=== PATIENT | male | born 1930 | race Caucasian/White ===

== ENCOUNTER → 2016-08-13 | Outpatient (CLI) | payer OTHER | PROVIDERS: ATTEND Otolaryngology | DX: R13.14 Dysphagia, pharyngoesophageal phase (principal) | CPT/HCPCS: 74230; 92611; G8996; G8997; G8998 ==

== ENCOUNTER 2016-09-18 12:48 | Inpatient (IN) | payer OTHER ==
[2016-09-18 14:45] LABS: HEMATOCRIT 27.2 % (40.0-51.0); HEMOGLOBIN 9.4 g/dL (13.7-17.5); MEAN CELL HEMOGLOBIN 32.2 pg (27.9-34.1); MEAN CELL HEMOGLOBIN CONCENTR. 34.6 g/dL (32.4-36.7); MEAN CELL VOLUME 93.2 fL (81.5-99.8); RED BLOOD CELL COUNT 2.92 10^6/uL (4.40-6.38); RED CELL DISTRIBUTION WIDTH 13.3 % (11.5-15.2)
[2016-09-18 14:58] LABS: ALANINE AMINOTRANSFERASE 41 IU/L (21-72); ALBUMIN 1.8 g/dL (3.5-5.0); ALKALINE PHOSPHATASE 41 IU/L (38-126); ANION GAP 6 mEq/L (8-16); ASPARTATE AMINOTRANSFERASE 55 IU/L (17-59); BILIRUBIN,TOTAL 0.5 mg/dL (0.1-1.4); CARBON DIOXIDE 14 mEq/l (22-31); CHLORIDE 115 mEq/L (97-110); GLOMERULAR FILTRATION RATE > 60; GLUCOSE 75 mg/dL (70-100); POTASSIUM 3.1 mEq/L (3.5-5.2); SODIUM 135 mEq/L (134-144); TOTAL PROTEIN 3.5 g/dL (6.3-8.2)
[2016-09-18 15:26] LABS: CALCIUM 4.7 mg/dL (8.5-10.4)
[2016-09-18] MEDS ORDERED: POTASSIUM Cl (KCl) 20 MEQ in D5W NS 1,000 ML IV SCH ×2 (15:45→16:30)
[2016-09-18 16:00] LABS: % IMMATURE GRANULYOCYTES 1.1 % (0.0-1.1); ABSOLUTE IMMATURE GRANULOCYTES 0.14 10^3/uL (0.00-0.10); ADD DIFF? NO; ADD MORPH? NO; ADD SCAN? NO; ATYPICAL LYMPHOCYTE FLAG 0 (0-99); FRAGMENT RBC FLAG 0 (0-99); HEMOGLOBIN 12.1 g/dL (13.7-17.5); LEFT SHIFT FLG 10 (0-99); LIPEMIA HEMOLYSIS FLAG 90 (0-99); MEAN CELL HEMOGLOBIN 31.6 pg (27.9-34.1); MEAN CELL HEMOGLOBIN CONCENTR. 34.6 g/dL (32.4-36.7); MEAN CELL VOLUME 91.4 fL (81.5-99.8); MEAN PLATELET VOLUME 9.4 fL (8.7-11.7); PLATELET CLUMPS FLAG 0 (0-99); PLATELET COUNT 155 10^3/uL (150-400); RED BLOOD CELL COUNT 3.83 10^6/uL (4.40-6.38); RED CELL DISTRIBUTION WIDTH 13.4 % (11.5-15.2)
[2016-09-18 16:34] LABS: ALANINE AMINOTRANSFERASE 64 IU/L (21-72); ALBUMIN 3.1 g/dL (3.5-5.0); ALKALINE PHOSPHATASE 66 IU/L (38-126); ANION GAP 10 mEq/L (8-16); ASPARTATE AMINOTRANSFERASE 82 IU/L (17-59); BILIRUBIN,TOTAL 0.8 mg/dL (0.1-1.4); CALCIUM 7.5 mg/dL (8.5-10.4); CARBON DIOXIDE 19 mEq/l (22-31); CHLORIDE 99 mEq/L (97-110); CREATININE 1.6 mg/dL (0.7-1.3); GLOMERULAR FILTRATION RATE 41; GLUCOSE 114 mg/dL (70-100); POTASSIUM 4.8 mEq/L (3.5-5.2); SODIUM 128 mEq/L (134-144); TOTAL PROTEIN 5.5 g/dL (6.3-8.2)
[2016-09-18] MEDS ORDERED: FLUTICASONE NASAL 120 SPRAYS/16 GM MDI EACHNARE PRN (18:49)
[2016-09-18] MEDS ORDERED: MIRTAZAPINE 15 MG TAB PO SCH (19:00)
[2016-09-18] MEDS ORDERED: NS 1,000 ML IV SCH (19:30)
--- NOTE | 2016-09-18 19:34 | GHP ---
[f rep st] HISTORY AND PHYSICAL DATE OF ADMISSION: 09/18/2016 REASON FOR ADMISSION: Pneumonia. 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 He was initially seen in the office where he w as found to have a temperature of 100 degrees Fahrenheit. He had new bibasilar rales with some righ t basilar wheezing. His oxygen saturation was 87% on room air and normally his saturation is 96% on room air. He is being admitted for evaluation and treatment. PAST MEDICAL HISTORY: Significant for an essential tremor, early dementia, prior hip fracture, asth ma, Legionella, and previous anaerobic pneumonia. REVIEW OF SYSTEMS: He is profoundly weak. His daughter describes that his dementia has been very p roblematic. He has had some problems with swallow and aspiration in the past, but he has difficulty following the guidelines for swallowing. He denies chest pain or palpitations. Denies digestive p roblems, but he does have profound overall weakness. No skin changes. No edema. PHYSICAL EXAMINATION: GENERAL: An 85-year-old male who is pleasant and in no acute distress. He i s alert, oriented and appropriate. VITAL SIGNS: Blood pressure in the office was 106/43, in the ho spital in 93/60. Heart rate was 96, in sinus. Oxygen saturation was initially 86% to 87% on room a ir. Became 100% on 2 L in the hospital. Temperature initially 100 Fahrenheit, is 36.5 centigrade i n the hospital. HEENT: Pupils are equal and react to light. Throat is normal. LUNGS: Bibasilar rales with some minimal right basilar wheezing and a tendency toward increase tubular breath sounds. ABDOMEN: Nontender. He has no peripheral edema. He moves all extremities well. IMPRESSION: Probable pneumonia. PLAN: Will admit. Will get chest x-ray, sputum cultures, initiate antibiotics. Do blood cultures. Follow symptoms closely. /[id number]/MODL
[2016-09-18] MEDS: PROPAFENONE HCL SR 225 MG CAP PO SCH (20:14)
[2016-09-18] MEDS: MEMANTINE HCL 5 MG TAB PO SCH (20:15)
[2016-09-18] MEDS: BUDESONIDE 3 MG EC CAP PO SCH (20:33)
[2016-09-18] MEDS ORDERED: ZOLPIDEM TARTRATE 5 MG TAB PO SCH (21:00)
[2016-09-18 22:44] LABS: COLOR YELLOW; LEUKOCYTE ESTERASE,URINE NEGATIVE (NEGATIVE); NITRITE,URINE NEGATIVE (NEGATIVE)
[2016-09-19] MEDS: ALBUTEROL 3 ML DEYVIAL IH PRN ×2 (01:02→04:50)
[2016-09-19] MEDS ORDERED: guaiFENesin/CODEINE PHOS 10 ML UDCUP PO PRN (01:50)
[2016-09-19] MEDS ORDERED: FUROSEMIDE 20 MG/2 ML VIAL IVP ONE ×2 (02:15→03:00)
[2016-09-19] MEDS: methylPREDNISolone SOD SUCC 125 MG/2 ML VIAL IVP SCH ×3 (02:28→13:09)
[2016-09-19] MEDS: BUDESONIDE 3 MG EC CAP PO SCH (08:11)
[2016-09-19] MEDS: MEMANTINE HCL 5 MG TAB PO SCH (08:12)
[2016-09-19] MEDS: PROPAFENONE HCL SR 225 MG CAP PO SCH (08:12)
--- NOTE | 2016-09-19 08:47 | SOAPPROG ---
SOAP Progress Note Assessment/Plan: Assessment: Plan: 09/19/16 08:46 asthma with significant exacerbation with probable pneumonia. Steroids started last night, nebs q4. On levaquin, cultures pending, Oxygen requirements are quite elevated. Subjective: The patient is coughing incessantly. No sleep. Grumpy. Short of breath. No CP. No other complaints Objective: Vital Signs Temp Pulse Resp BP Pulse Ox 37.1 C 101 H 20 90/57 L 91 L 09/19/16 08:00 09/19/16 08:00 09/19/16 08:00 09/19/16 08:00 09/19/16 08:00 Laboratory Results 09/18/16 15:50 09/18/16 15:50 09/18/16 09/19/16 09/20/16 05:59 05:59 05:59 Output Total 225 Balance -225 Gen: distressed, frustrated, uncomfortable with SOB HEENT: mild rhinorrhea Lungs: diffuse expiratory rhonchi, crackles, cough minimally productive Heart: tachy Abd soft NT LE's no edema ICD10 Worksheet Patient Problems: Problems Problem Status Onset ASCVD (arteriosclerotic cardiovascular disease) Acute Hip fracture, left Acute Hip fracture, right Acute
[2016-09-19] MEDS ORDERED: LORazepam 2 MG/ML INJ IVP PRN ×2 (08:49→14:23)
[2016-09-19] MEDS ORDERED: LORazepam 0.5 MG TAB PO PRN (08:49)
[2016-09-19] MEDS ORDERED: LOPERAMIDE HCL 1 MG/5 ML UDCUP PO SCH (09:00)
[2016-09-19] MEDS ORDERED: OMEGA-3 FATTY ACIDS 1,000 MG CAP PO SCH (09:00)
[2016-09-19] MEDS ORDERED: CHOLECALCIFEROL VIT D3 1,000 UNITS TAB PO SCH (09:00)
[2016-09-19] MEDS ORDERED: CYANO/VITAMIN B12 1000 MCG TAB PO SCH (09:00)
[2016-09-19] MEDS: ALBUTEROL 3 ML DEYVIAL IH SCH ×2 (09:06→13:09)
[2016-09-19 10:01] LABS: % IMMATURE GRANULYOCYTES 0.6 % (0.0-1.1); ABSOLUTE IMMATURE GRANULOCYTES 0.08 10^3/uL (0.00-0.10); ADD DIFF? NO; ADD MORPH? NO; ADD SCAN? NO; ATYPICAL LYMPHOCYTE FLAG 0 (0-99); FRAGMENT RBC FLAG 0 (0-99); HEMOGLOBIN 13.1 g/dL (13.7-17.5); LEFT SHIFT FLG 10 (0-99); LIPEMIA HEMOLYSIS FLAG 80 (0-99); MEAN CELL HEMOGLOBIN CONCENTR. 33.6 g/dL (32.4-36.7); MEAN CELL VOLUME 95.1 fL (81.5-99.8); MEAN PLATELET VOLUME 9.7 fL (8.7-11.7); PLATELET CLUMPS FLAG 10 (0-99); PLATELET COUNT 145 10^3/uL (150-400); RED CELL DISTRIBUTION WIDTH 13.5 % (11.5-15.2)
[2016-09-19 10:14] LABS: ANION GAP 16 mEq/L (8-16); CALCIUM 6.8 mg/dL (8.5-10.4); CARBON DIOXIDE 14 mEq/l (22-31); CHLORIDE 103 mEq/L (97-110); CREATININE 1.5 mg/dL (0.7-1.3); GLOMERULAR FILTRATION RATE 45; GLUCOSE 236 mg/dL (70-100); POTASSIUM 4.1 mEq/L (3.5-5.2); SODIUM 133 mEq/L (134-144)
[2016-09-19 10:30] LABS: CREATINE KINASE-MB FRACTION 9.54 ng/mL (0-3.19)
--- NOTE | 2016-09-19 10:31 | CPEKG ---
Heart Rate: 105 RR Interval: 571 P-R Interval: 148 QRSD Interval: 164 QT Interval: 388 QTC Interval: 513 P [place]: -68 QRS [place]: 159 T Wave [place]: -21 EKG Severity - ABNORMAL ECG - EKG Impression: SINUS OR ECTOPIC ATRIAL TACHYCARDIA EKG Impression: RIGHT BUNDLE BRANCH BLOCK EKG Impression: POSTERIOR INJURY PATTERN SUGGESTIVE OF TRUE POSTERIOR NH Electronically Signed By: Huy Quiñones 19-Sep-2016 13:40:35
[2016-09-19 10:41] LABS: CK-MB INTERPRETATION NEGATIVE (NEGATIVE)
[2016-09-19 13:55] VITALS: BP 89/59; PULSE 96; RESP 27; TEMP 98.2; O2SAT 99
--- NOTE | 2016-09-19 14:21 | PDINTPN ---
Associate Professor Of Psychology Progress Note Assessment/Plan: Assessment: I had a long discussion with the patient's family regarding his extremely poor prognosis. It is their wish that also poor be withdrawn and the patient be made comfortable. This regard I will discontinue his BiPAP and began comfort care measures. Patient is do not resuscitate Objective: Vital Signs Temp Pulse Resp BP Pulse Ox 36.8 C 96 27 H 89/59 L 99 09/19/16 13:00 09/19/16 13:00 09/19/16 13:00 09/19/16 13:00 09/19/16 13:00 Laboratory Results 09/19/16 09:40 09/19/16 09:40 09/18/16 09/19/16 09/20/16 05:59 05:59 05:59 Output Total 225 Balance -225 ICD10 Worksheet Patient Problems: Problems Problem Status Onset Chronic Disease Mgmt/Transitional Care Acute ASCVD (arteriosclerotic cardiovascular disease) Acute Hip fracture, left Acute Hip fracture, right Acute
--- NOTE | 2016-09-19 14:34 | ECHO ---
[id number] + + [address] : : [place] [address] : : [phone] + + Adult Echocardiographic Report + -------+ :Name: LISA STAHL Kuldeep Date: 09/19/2016 11:59 AM : : Hospital Admission Number: [id number] Locati on: 253: :: 1930 Gender: Male Height: 69 in : :Age: 85 yrs Race: WH Weight: 125 lb : :Reason For Study: Posterior DC : : BSA: 1.7 meter s2 : :History: CABG : + -------+ MMode/2D Measurements \T\ Calculations IVSd: 1.1 cm LVIDd: 4.3 cm FS: 42.4 % Ao root diam: LVPWd: 0.93 cm LVIDs: 2.5 cm EDV(Teich): 3.7 cm 81.7 ml LA dimension: ESV(Teich): 3.6 cm 21.4 ml EF(Teich): 73.8 % LVOT diam: 2.1 cm LA A4 area: LVOT area: 21.1 cm2 3.3 cm2 Normal Measurement Values: + + :LVIDd (3.5-5.7cm) IVSd (0.6-1.1cm) LVPWd (0.6-1.1cm) Aortic Root (2.0-3.7cm)Left Atrium (1.5-4.0cm): :LV Vol(d) (76-115ml) LV Vol(s) (29-48ml) Ejec Fraction (50-65%)PV Gabriel (0.6- 1.2m/s) TV Gabriel (0.4-1.0m/s) : :MV E Gabriel (0.8-1.0m/s)MV A Gabriel (0.3-1.0m/s)LVOT Gabriel (0.7-1.2m/s) Asc Ao Gabriel ( 0.9-1.8m/s) : + + Doppler Measurements \T\ Calculations MV E max gabriel: 128.3 cm/sec Ao mean P.1 mmHg TR max gabriel: 354.2 cm/sec MV A max gabriel: 62.2 cm/sec Ao V2 mean: 69.9 cm/sec TR max P.2 mmHg MV E/A: 2.1 Ao V2 VTI: 14.9 cm RAP systole: 10.0 mmHg RVSP(TR): 60.2 mmHg Left Ventricle The left ventricle is normal in size. There is normal left ventricular wall thickness. Left ventricular systolic function is normal. There is Doppler evidence for diastolic dysfunction. Ejection Fraction = 60-65%. No regional wall motion abnormalities noted. Right Ventricle The right ventricle is normal in size and function. Atria The left atrium is mild to moderately dilated. The right atrium is mild to moderately dilated. The interatrial septum is intact with no evidence for an atrial septal defect. Mitral Valve Prolapse of the anterior mitral leaflet. There is no mitral valve stenosis. The mitral regurgitant jet is anteriorly directed, which is consistent with posterior leaflet pathology. The mitral regurgitant jet is eccentrically directed. Tricuspid Valve Normal tricuspid valve. Right ventricular systolic pressure is 56-61mmHg. There is moderate tricuspid regurgitation. There is Doppler evidence for mild to moderate pulmonary hypertension. Aortic Valve The aortic valve opens well. There is no aortic stenosis. There is no aortic insufficiency. Pulmonic Valve The pulmonic valve is normal in structure and function. trace to mild pulmonic valvular regurgitation. Great Vessels The aortic root is normal size. Pericardium/Pleural There is no pericardial effusion. Conclusion A complete two-dimensional transthoracic echocardiogram was performed (2D, M-mode, Doppler and color flow Doppler). The study was technically difficult. No comparison echo,. Left ventricular systolic function is normal. No regional wall motion abnormalities noted. There is Doppler evidence for diastolic dysfunction. Ejection Fraction = 60-65%. The left atrium is mild to moderately dilated. The right atrium is mild to moderately dilated. Prolapse of the anterior mitral leaflet. The mitral regurgitant jet is anteriorly directed, which is consistent with posterior leaflet pathology. The mitral regurgitant jet is eccentrically directed. There is moderate tricuspid regurgitation. Right ventricular systolic pressure is 56-61mmHg. There is Doppler evidence for mild to moderate pulmonary hypertension. trace to mild pulmonic valvular regurgitation. Final Reading Physician: Nathalie Rocha signed on 09/19/2016 02:32 PM Ordering Physician: Huy Quiñones Performed By: Kristine Bonlila, [facility]
--- NOTE | 2016-09-19 14:35 | GCON ---
[f rep st] CONSULTATION ACUTE CARE CLINICAL NURSE SPECIALIST CONSULTATION REASON FOR ADMISSION TO INTENSIVE CARE UNIT: Likely acute VT. HISTORY OF PRESENT ILLNESS: The patient is an 85-year-old white male. Extensive past medical histo ry including dementia, essential tremor, asthma. He has also had a hip fracture and Legionella. He was initially admitted on 09/18/2016 with a diagnosis of probable pneumonia. On the day following admission, he began complaining of significant chest pain. He was seen by Card iology. He was subsequently transferred to the intensive care unit where it was felt he was having a posterior VT. He was complaining of breathlessness. Currently, he is on BiPAP. Echocardiogram i s currently pending. PAST MEDICAL HISTORY: Again, significant for essential tremor, dementia, asthma. He also had a pre vious pneumonia. PAST SURGICAL HISTORY: He has had a hip fracture. ALLERGIES: Cephalosporin, lansoprazole, penicillin G. 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 He has excellent family support. CURRENT MEDICATIONS: Include Proventil, aspirin, budesonide, vitamin D, Aricept, Flonase, Robitussi n, Levaquin, Imodium, Ativan, Namenda, Solu-Medrol, Remeron, morphine, primidone, Pravachol, Rythmol , vitamin B12, and Ambien. PHYSICAL EXAM: VITAL SIGNS: Blood pressure is 79/56, pulse 104, respirations 24, temperature 37.1, oxygen saturation 98% on 60% BiPAP. GENERAL: He is a well-developed, elderly white male who is cu rrently resting comfortably on BiPAP. HEENT: Eyes JESU, EOMI. Throat shows no erythema or tonsill ar hypertrophy. NECK: Supple. No cervical adenopathy. HEART: Regular rate and rhythm with a 2/6 systolic murmur at the left sternal border without radiation. LUNGS: Diminished breath sounds but no wheeze. ABDOMEN: Soft, nontender. Bowel sounds present in all 4 quadrants. EXTREMITIES: No clubbing, cyanosis, or edema. LABORATORIES: White count 12.8, hemoglobin 13, hematocrit 39, platelet count is 145, sodium 133, po tassium 4.1, chloride 103, CO2 is 16, BUN 36, creatinine 1.5, glucose 236. CK-MB is positive. Trop onin is positive. Urinalysis is negative. IMAGING: Chest x-ray shows . IMPRESSION: 1. Acute myocardial infarction. 2. Dementia. 3. Pulmonary edema. 4. History of asthma. 5. Essential tremor. RECOMMENDATIONS: 1. Continue BiPAP for now. 2. Await echo results. 3. The patient is do not resuscitate. 4. Medical management of acute myocardial infarction for now and likely patient will be going to [facility] dairy lab technician. 5. DVT and PE prophylaxis. 6. Stress ulcer prophylaxis. /[id number]/MODL
[2016-09-19] MEDS ORDERED: SCOPOLAMINE HYDROBROMIDE 1.5 MG PATCH TD SCH (16:00)
--- NOTE | 2016-09-19 17:22 | SOAPPROG ---
SOAP Progress Note Assessment/Plan: Assessment: 85 yo male admitted w/ pna, hypoxia, w/ increased oxygen demand overnight to 10 L overnight, troponin checked which was positive at 9 and ekg w/ RBBB. spoke w/ Julia [facility] 3E and transferred him to ICU. Spoke w/ daughter, Chela, who is medical power of wind tunnel technician, and confirmed DNR. Cardiology, Dr. Quiñones was called in ICU and he agreed pt w/ acute cardiac injury ongoing, posterior DC most likely. Given the patient's wishes and his severe dementia and daughter at bedside in agreement, plan to not take him to the ammunition assembly i laborer for intervention. Discussed plan with Dr. Quiñones. Family wishes to make him comfort measures only at this point. Met w/ family and patient in the ICU and they expressed a desire to remove his cpap mask as soon as Mr. Navarro's grandchildren were able to arrive, as the cpap mask is really bothering him but they don't want him to pass without the grandchildren getting to say good-bye in person. Plans will then be to treat with oxygen by nasal cannula, comfort measures including morphine and lorazepam to help with cp and anxiety. Plan: 09/19/16 17:11 Subjective: Pt sitting up in bed w/ cpap mask on Objective: Vital Signs Temp Pulse Resp BP Pulse Ox 36.8 C 96 27 H 89/59 L 99 09/19/16 13:00 09/19/16 13:00 09/19/16 13:00 09/19/16 13:00 09/19/16 13:00 Laboratory Results 09/19/16 09:40 09/19/16 09:40 09/18/16 09/19/16 09/20/16 05:59 05:59 05:59 Output Total 225 Balance -225 Gen: pleasant male w/ severe dementia sitting in bed w/ mask on w some anxiety but clearly pleased to see his family at the bedside, recognizes me, squeezing hands w/ loved ones. Chest: coarse sounds thoughout all lung myers CV; rrr to tachy Abd: soft nt nd Neuro: tired (at times closing eyes), recognizing family Psych: anxious but lorazepam helping ICD10 Worksheet Patient Problems: Problems Problem Status Onset Chronic Disease Mgmt/Transitional Care Acute Hip fracture, right Acute Hip fracture, left Acute ASCVD (arteriosclerotic cardiovascular disease) Acute
[2016-09-19] MEDS ORDERED: PRIMIDONE 250 MG TAB PO SCH (18:00)
[2016-09-19] MEDS ORDERED: PRAVASTATIN SODIUM 40 MG TAB PO SCH (18:00)
[2016-09-19] MEDS ORDERED: ASPIRIN EC 81 MG TAB PO SCH (18:00)
[2016-09-19] MEDS ORDERED: DONEPEZIL HCL 5 MG TAB PO SCH (18:00)
== END 2016-09-19 18:07 | disposition expired | DRG 193 ==
LOC: F3E 12:48 → F2N 09-19 11:14
PROVIDERS: ADMIT Internal Medicine; ATTEND Internal Medicine
DX: J18.9 Pneumonia, unspecified organism (principal); I21.3 ST elevation (STEMI) myocardial infarction of unspecified site; J81.1 Chronic pulmonary edema; G25.0 Essential tremor; J45.909 Unspecified asthma, uncomplicated; F03.90 Unspecified dementia, unspecified severity, without behavioral disturbance, psychotic disturbance, mood disturbance, and anxiety; Z66 Do not resuscitate; Z51.5 Encounter for palliative care
CPT/HCPCS: J2060